=== PATIENT | female | born 1985 | race Hispanic/Latino ===

== ENCOUNTER 2024-05-01 19:11 | Emergency (ER) | payer BC ==
[~2024-05-01] VITALS: Ht 165.1 cm; Wt 129.3 kg
--- NOTE | 2024-05-01 19:26 | ERN ---
ED Note History of Present Illness Stated Complaint: HEADACHE Chief Complaint: Headache Time Seen by MD: 19:18 Dictation: PATIENT IS A 38-YEAR-OLD FEMALE COMING IN TODAY WITH A RIGHT RETRO-ORBITAL HEADACHE SHE HAS HAD OFF AND ON SINCE SATURDAY. SHE STATES IT COMES AND GOES, HAS RESPONDED TO TYLENOL IN THE PAST HOWEVER TODAY IT GOT WORSE AND SHE HAD VOMITING MULTIPLE TIMES. DECIDED TO COME TO THE HOSPITAL FOR FURTHER EVALUATION AND TREATMENT. SHE DENIES THAT THE ONSET WAS A THUNDERBEAT HEADACHE BECAUSE IT DOES RESOLVE. NEUROLOGICALLY INTACT SPEECH IS CLEAR NO FEVER NO CHILLS [facility] IS 0 Past Medical History Past Medical History: No Pertinent History Surgical History: None PSYCH History: no pertinent psych hx History: Not Applicable RN Note Reviewed/Agreed w/PFSH: Yes Review of System Dictation CONSTITUTIONAL: NEGATIVE EXCEPT FOR HPI HEAD/FACE: NEGATIVE EXCEPT FOR HPI EENT: NEGATIVE EXCEPT FOR HPI RESPIRATORY: NEGATIVE EXCEPT FOR HPI GASTROINTESTINAL/ABDOMINAL: NEGATIVE EXCEPT FOR HPI NAUSEA VOMITING GENITOURINARY: NEGATIVE EXCEPT FOR HPI MUSCULOSKELETAL: NEGATIVE EXCEPT FOR HPI INTEGUMENTARY: NEGATIVE EXCEPT FOR HPI NEUROLOGICAL/PSYCH: NEGATIVE EXCEPT FOR HPI RIGHT RETRO-ORBITAL HEADACHE HEMATOLOGIC/LYMPHATIC: NEGATIVE EXCEPT FOR HPI ALL SYSTEMS NEGATIVE, EXCEPT NOTED ABOVE. 13 POINT REVIEW OF SYSTEMS ASSESSED AND ALL NEGATIVE EXCEPT FOR ABOVE. Initial Vital Sign VS Vital Signs Date Time Temp Pulse Resp B/P (MAP) Pulse Ox O2 Delivery O2 Flow Rate FiO2 05/01/24 19:13 97.9 78 20 131/56 98 Room Air 0 05/01/24 19:21 21 Physical Exam Dictation VITAL SIGNS REVIEWED GENERAL APPEARANCE: ALERT, ORIENTED X 3, MY ACUTE DISTRESS, WELL DEVELOPED, NOURISHED. HEAD AND FACE: NON-TRAUMATIC. EYES: PERRL, PINK CONJUNCTIVAS, EYELID NO TRAUMA, ANTERIOR CHAMBER WITH ARCUS SENILIS. EARS: PINNAS INTACT AND NO SIGNS OF TRAUMA OR ERYTHEMA EAR CANALS CLEAR AND NO DISCHARGE TM NO ERYTHEMA NOSE: NO DISCHARGE, NO BLEEDING. OROPHARYNX: MOUTH NORMAL, TONGUE PINK, PHARYNX CLEAR,NO ERYTHEMA, TONSILS NO EXUDATES, NO ABSCESSES NOTED, MUCOUS MEMBRANE MOIST NECK: SUPPLE, NON-TENDER, NO THYROMEGALY, NO MASSES, NO JVD, NO BRUITS BREAST:DEFERRED CHEST:NO TENDERNESS, NO CREPITUS, NO PARADOXICAL MOVEMENT, NO RETRACTIONS LUNGS:CLEAR, WELL-VENTILATED, SYMMETRIC, NO RALES, NO WHEEZING, NO RHONCHI, NO STRIDOR, GOOD BREATH SOUNDS BILATERALLY HEART: REGULAR RATE, REGULAR RHYTHM, NO MURMUR, NO GALLOPS VASCULAR: NO PERIPHERAL EDEMA, ABDOMEN: SOFT, POSITIVE BOWEL SOUNDS, NONDISTENDED, NO GUARDING, NONTENDER, NO REBOUND, NO MASSES NO HEPATOMEGALY, NO SPLENOMEGALY, NO TELLO'S SIGN, NO HERNIAS. RECTAL: DEFERRED GENITAL: DEFERRED NEUROLOGICAL: NORMAL SPEECH, MOTOR FUNCTION INTACT, SENSORY FUNCTION INTACT [facility] IS 0 MUSCULOSKELETAL: NECK NONTENDER, FULL RANGE OF MOTION, BACK NONTENDER, FULL RANGE OF MOTION, EXTREMITIES: NONTENDER, FULL RANGE OF MOTION SKIN: COLOR PINK, DRY, NO TURGOR, NO RASH, NO LACERATIONS, NO ABRASIONS, NO CONTUSIONS. LYMPHATIC: DEFERRED Results (Laboratory/Radiology) Laboratory/Radiology Laboratory Tests Test 05/01/24 19:25 SARS-CoV-2 Antigen (Rapid) PRESUMPTIVE NEGATIVE CT HEAD/BRAIN W/O CONTRAST CLINICAL HISTORY: INTERMITTENT RIGHT RETRO-ORBITAL HEADACHE FIVE DAYS COMPARISON: None TECHNIQUE: Multiple sequential axial images of the head were obtained from the base of the skull through vertex. CT was performed with one or more of the following dose reduction techniques: automated exposure control, adjustment of the mA and/or kV according to patient size, or use of iterative reconstruction technique FINDINGS: The brain parenchyma and CSF spaces are unremarkable. The orbital contents, paranasal sinuses and mastoid air cells are within normal limits. The calvarium is intact. IMPRESSION: Normal study Labs Reviewed?: Yes ED Course ED Course Orders Procedure Category Date Status Time Covid19 (Sars Antigen LAB 05/01/24 Complete Rapid) 19:23 0.9%Nacl 1000ml (Ns PHA 05/01/24 Complete 1000ml) 19:30 Ketorolac PHA 05/01/24 Complete Tromethamine 30mg/Ml 19:30 Ondansetron 4mg Inj PHA 05/01/24 Complete (Zofran 4mg Inj) 19:30 Metoclopramide 10 PHA 05/01/24 Complete Mg/2 Ml Vial (Reglan 1 19:30 Morphine 2mg Syg PHA 05/01/24 Complete (Morphine 2mg Syg) 20:30 Ct Head/Brain W/O CT 05/01/24 Resulted Contrast 20:16 Current Medications Medications (Trade) Dose Ordered Sig/Babatunde Route PRN Reason Start Time Stop Time Status Last Admin Dose Admin Ketorolac Tromethamine (toRADol) 30 mg ONCE ONCE IVP 05/01/24 19:30 05/01/24 19:31 DC 05/01/24 19:30 Metoclopramide HCl (regLAN 10MG IV) 10 mg ONCE ONCE IVP 05/01/24 19:30 05/01/24 19:31 DC 05/01/24 19:30 Morphine Sulfate (morPHINE 2MG SYG) 2 mg ONCE ONCE IVP 05/01/24 20:30 05/01/24 20:31 DC 05/01/24 20:26 Ondansetron HCl (zoFRAN 4MG INJ) 4 mg ONCE ONCE IVP 05/01/24 19:30 05/01/24 19:31 DC 05/01/24 19:30 Sodium Chloride 1,000 ml @ 0 mls/hr ONCE ONCE IV 05/01/24 19:30 05/01/24 19:31 DC 05/01/24 19:30 Vital Signs Date Time Temp Pulse Resp B/P (MAP) Pulse Ox O2 Delivery O2 Flow Rate FiO2 05/01/24 21:17 99.0 88 20 120/68 96 Room Air* 0 21 05/01/24 19:21 100.4 86 20 122/60 96 Room Air* 0 21 05/01/24 19:13 97.9 78 20 131/56 98 Room Air 0 2132 PATIENT STATES HEADACHE IS MARKEDLY IMPROVED. NO NAUSEA VOMITING NOW REMAINS NEUROLOGICALLY INTACT WITH [facility] IS 0. SHE WILL BE DISCHARGED HOME WITH FIORICET AND ZOFRAN FOR A TENSION HEADACHE AND TOLD TO SEE HER PRIMARY CARE DOCTOR SATURDAY WITHOUT FAIL FOR FOLLOW UP. ALL QUESTIONS ANSWERED AT AT BEDSIDE. Medical Decision Making MDM MEDICAL DISCHARGE MAKING BASED ON EMPIRIC TREATMENT FOR A TENSION HEADACHE WITH CT SCAN. CT NEGATIVE SARS COVID SWAB NEGATIVE PATIENT STATES HEADACHE MARKEDLY IMPROVED AFTER TREATMENT. NEUROLOGICALLY INTACT AND WE WILL BE DISCHARGED HOME DX & DISP Disposition: Discharge Departure Impression: Primary Impression: Acute tension headache Additional Impression: Nausea & vomiting Condition: Stable Scripts Ondansetron (Ondansetron Odt) 4 Mg Tab.rapdis 4 MG PO Q6HPRN PRN for nausea, #16 TAB 0 Refills Prov: SHANNAN VARMA [employer]CHARD SPRAYER 05/01/24 Butalb/Acetaminophen/Caffeine (Esgic 50-325-40 mg Tablet) 50 Mg-325 Mg-40 Mg Tablet 2 EACH PO Q4PRN PRN for HEADACHE, #30 TAB TWO TABLETS BY MOUTH EVERY4 HOURS P.R.N. HEADACHE, MAXIMUM SIX TABLETS EVERY 24 HOURS Prov: SHANNAN VARMA NP 05/01/24 Additional Instructions: FOLLOW-UP WITH PRIMARY CARE PROVIDER IN 1 TO 2 DAYS. TAKE MEDICATIONS DIRECTED HERE IN THE EMERGENCY ROOM. OKAY TO CONTINUE HOME MEDICATIONS UNLESS OTHERWISE DISCUSSED DURING YOUR VISIT IN THE EMERGENCY ROOM TODAY. RETURN TO YOUR NEAREST EMERGENCY ROOM IF SYMPTOMS WORSEN OR IF THERE IS NO IMPROVEMENT. CALL 911 IF YOU NEED IMMEDIATE ASSISTANCE. TAKE TYLENOL OR MOTRIN [id number] NTER NEEDED AND IF NO CONTRAINDICATIONS ARE PRESENT. INCREASE ORAL HYDRATION. A WOUND CULTURE OR URINE CULTURE WAS ORDERED HERE IN THE EMERGENCY ROOM DEPARTMENT PLEASE FOLLOW-UP WITH PRIMARY CARE PROVIDER AND ADVISE THEM TO GET REPEAT PORTS FROM OUR FACILITY. IF YOU HAD ANY ETHAN WRAP/SPLINTS THAT WERE APPLIED HERE, PLEASE DO NOT REMOVE THEM UNTIL YOU SEE [facility]. TAKE MEDICATIONS DIRECTED FOR YOUR HEADACHE. INCREASE YOUR WATER INTAKE. FOLLOW UP WITH YOUR PRIMARY CARE DOCTOR ON SATURDAY WITHOUT FAIL FOR MANAGEMENT. Referrals: NONE (PCP) Time of Disposition: 21:35 I have reviewed the case, and I agree with, Diagnosis and Plan SHANNAN VARMA NP May 01, 2024 19:26
[2024-05-01] MEDS: 0.9%NACL 1000ML 1,000 ML IV ONE (19:30)
[2024-05-01] MEDS: ketOROlac 30MG VIAL (30MG/ML) IVP ONE (19:30)
[2024-05-01] MEDS: metoCLOPRAmide 10 MG/2 ML VIAL IVP ONE (19:30)
[2024-05-01] MEDS: ondanSETRON 4MG INJ IVP ONE (19:30)
[2024-05-01] MEDS: morPHINE 2 MG SYG IVP ONE (20:26)
--- NOTE | 2024-05-01 21:06 | HMCIMG ---
CT HEAD/BRAIN W/O CONTRAST CLINICAL HISTORY: INTERMITTENT RIGHT RETRO-ORBITAL HEADACHE FIVE DAYS COMPARISON: None TECHNIQUE: Multiple sequential axial images of the head were obtained from the base of the skull through vertex. CT was performed with one or more of the following dose reduction techniques: automated exposure control, adjustment of the mA and/or kV according to patient size, or use of iterative reconstruction technique FINDINGS: The brain parenchyma and CSF spaces are unremarkable. The orbital contents, paranasal sinuses and mastoid air cells are within normal limits. The calvarium is intact. IMPRESSION: Normal study
[2024-05-01] MEDS ORDERED: BUTA-271 PO (21:36)
[2024-05-01] MEDS ORDERED: ONDA-243 PO (21:36)
[2024-05-01 22:25] VITALS: BP 122/72; PULSE 87; RESP 20; TEMP 98.9; O2SAT 96
== END 2024-05-01 22:26 | disposition home or self-care (01) ==
LOC: EDH 19:11
DX: G44.209 Tension-type headache, unspecified, not intractable (principal); R11.2 Nausea with vomiting, unspecified; Z20.822 Contact with and (suspected) exposure to COVID-19
CPT/HCPCS: 99284; 96374; 96375; 70450; 87426; J2270; J7030; J2405; J1885; J2765